=== PATIENT | male | born 1995 | race Caucasian/White ===

== ENCOUNTER 2021-12-23 01:01 | Emergency (ER) | payer OTHER ==
[~2021-12-23] VITALS: Ht 182.8 cm; Wt 150.1 kg
[~2021-12-23 01:01] MED LIST: FLEXERIL10 MG PO; KEFLEX500 MG PO; MOTRIN600 MG PO
== END 2021-12-23 02:15 | disposition home or self-care (01) ==
LOC: ED 01:01
DX: S93.601A Unspecified sprain of right foot, initial encounter (principal); Z90.89 Acquired absence of other organs; X50.1XXA Overexertion from prolonged static or awkward postures, initial encounter; Y93.89 Activity, other specified; Y92.89 Other specified places as the place of occurrence of the external cause; Y99.8 Other external cause status

== ENCOUNTER → 2022-11-23 | Outpatient (CLI) | payer OTHER | END | disposition home or self-care (01) | LOC: MRI 00:11 | PROVIDERS: ATTEND Nurse Practitioner Family | DX: M51.37 Other intervertebral disc degeneration, lumbosacral region (principal); R94.130 Abnormal response to nerve stimulation, unspecified; M48.07 Spinal stenosis, lumbosacral region; Z86.79 Personal history of other diseases of the circulatory system ==

== ENCOUNTER → 2023-12-04 | Outpatient (CLI) | payer OTHER | END | disposition home or self-care (01) | LOC: LAB 09:33 | PROVIDERS: ATTEND Nurse Practitioner Family | DX: R68.82 Decreased libido (principal) ==